=== PATIENT | female | born 1985 | race Caucasian/White ===

== ENCOUNTER 2017-09-16 16:19 | Inpatient (IN) | payer BC ==
[2017-09-16] VITALS (9 sets, daily range): BP systolic 128–144; BP diastolic 61–79
[~2017-09-16] VITALS: Ht 170.2 cm; Wt 62.5 kg
[~2017-09-16 16:19] MED LIST: ACETAMINOPHEN-1 EAC1 PO; FISH OIL300 MG PO; IBUPROFEN800 MG PO; PRENATAL VITAM1 EA11 PO; ZANTAC150 MG PO
[2017-09-16] MEDS ORDERED: SYNTHROID50 MCG PO (17:02)
[2017-09-16 17:10] LABS: BASOPHIL (%) 0.3 % (0-1); EOSINOPHIL (%) 0.7 % (0-5); EOSINOPHIL COUNT 0.1 K/uL (0-0.3); HEMATOCRIT 38.2 % (36.0-46.0); HEMOGLOBIN 13.3 G/DL (11.9-15.5); IMMATURE GRANULOCYTE (%) 0.5 % (0.0-0.7); LYMPHOCYTE (%) 15.5 % (15-42); LYMPHOCYTE COUNT 1.9 K/uL (1.0-2.8); MCH 31.9 PG (29.0-34.0); MCHC 34.8 G/DL (30.0-36.0); MCV 91.6 FL (83-99); MONOCYTE (%) 8.2 % (3-12); NEUTROPHIL (%) 74.8 % (45-76); NEUTROPHIL COUNT 9.4 K/uL (1.8-6.4); PLATELET COUNT 164 K/uL (156-360); RBC DIS.WIDTH-CV 12.8 % (11.8-14.6); RBC DIS.WIDTH-SD 42.6 % (39-53); RED BLOOD COUNT 4.17 M/uL (3.80-5.20); WHITE BLOOD COUNT 12.5 K/uL (4.1-10.2)
[2017-09-16 17:21] LABS: AMPHETAMINE NEGATIVE (500 ng/mL); BARBITURATES NEGATIVE (200 ng/mL); BENZODIAZEPINES NEGATIVE (150 ng/mL); BUPRENORPHINE NEGATIVE (10 ng/mL); COCAINE NEGATIVE (150 ng/mL); METHADONE NEGATIVE (200 ng/mL); METHAMPHETAMINE NEGATIVE (500 ng/mL); OPIATES (MORPHINE) NEGATIVE (100 ng/mL); OXYCODONE NEGATIVE (100 ng/mL); PHENCYCLIDINE NEGATIVE (25 ng/mL); PROPOXYPHENE NEGATIVE (300 ng/mL); THC CANNABINOIDS NEGATIVE (50 ng/mL); TRICYCLIC ANTIDEPRESSANTS NEGATIVE (300 ng/mL)
[2017-09-16] MEDS ORDERED: IBUPROFEN800 MG PO (18:43)
[2017-09-17 07:40] VITALS: BP 113/67
[2017-09-17 08:30] LABS: THYROTROPIN (TSH) 1.8 MIU/L (0.4-5.5)
[2017-09-17 08:47] LABS: BASOPHIL (%) 0.2 % (0-1); EOSINOPHIL (%) 0.3 % (0-5); HEMATOCRIT 41.8 % (36.0-46.0); HEMOGLOBIN 14.2 G/DL (11.9-15.5); IMMATURE GRANULOCYTE (%) 0.5 % (0.0-0.7); LYMPHOCYTE (%) 14.3 % (15-42); LYMPHOCYTE COUNT 2.2 K/uL (1.0-2.8); MCH 30.9 PG (29.0-34.0); MCV 90.9 FL (83-99); MONOCYTE (%) 7.4 % (3-12); MONOCYTE COUNT 1.1 K/uL (0-0.8); NEUTROPHIL (%) 77.3 % (45-76); NEUTROPHIL COUNT 11.8 K/uL (1.8-6.4); PLATELET COUNT 181 K/uL (156-360); RBC DIS.WIDTH-CV 12.9 % (11.8-14.6); RBC DIS.WIDTH-SD 42.4 % (39-53); WHITE BLOOD COUNT 15.2 K/uL (4.1-10.2)
[2017-09-17 16:06] VITALS: BP 115/72
[2017-09-17 23:36] VITALS: BP 122/66
[2017-09-18 07:11] VITALS: BP 118/76
== END 2017-09-18 12:40 | disposition home or self-care (01) | DRG 774 ==
LOC: LDRP-OP 16:19 → 2WEST 16:20 → LDRP-OP 10-19 13:45
PROVIDERS: Midwife; Obstetrics & Gynecology Gynecology
DX: O99.824 Streptococcus B carrier state complicating childbirth (principal); O70.0 First degree perineal laceration during delivery; Z37.0 Single live birth; E03.9 Hypothyroidism, unspecified; O99.284 Endocrine, nutritional and metabolic diseases complicating childbirth; O72.1 Other immediate postpartum hemorrhage; Z3A.39 39 weeks gestation of pregnancy; O12.04 Gestational edema, complicating childbirth; O43.893 Other placental disorders, third trimester; N60.12 Diffuse cystic mastopathy of left breast; N60.11 Diffuse cystic mastopathy of right breast; Z88.0 Allergy status to penicillin
CPT/HCPCS: 84439; 84443; 85025; J3370; J7120